=== PATIENT | female | born 1985 | race Caucasian/White ===

== ENCOUNTER → 2020-01-30 | Outpatient (CLI) | payer OTHER ==
[~2020-01-30] MED LIST: None at this Time
[2020-01-30 11:54] LABS: BILIRUBIN, DIRECT 0.3 mg/dL (0.1-0.2)
[2020-01-30 11:56] LABS: BILIRUBIN,TOTAL 1.1 mg/dL (0.2-1.0); TOTAL PROTEIN 7.4 g/dL (6.4-8.2)
[2020-01-30 13:31] LABS: BILIRUBIN,INDIRECT 0.8 mg/dL (0.0-2.0)
== END | disposition home or self-care (01) ==
LOC: STAR 10:35
PROVIDERS: ATTEND Specialist
DX: Z01.818 Encounter for other preprocedural examination (principal); Z11.59 Encounter for screening for other viral diseases; N92.0 Excessive and frequent menstruation with regular cycle; R19.07 Generalized intra-abdominal and pelvic swelling, mass and lump
CPT/HCPCS: 36415; 80076; 87635

== ENCOUNTER 2020-02-03 05:31 | Day surgery (SDC) | payer OTHER ==
[~2020-02-03] VITALS: Ht 170.2 cm; Wt 75.0 kg
[2020-02-03] MEDS ORDERED: LACTATED RINGERS 1,000 ML IV SCH (06:05)
[2020-02-03] MEDS ORDERED: CHLORHEXIDINE 15 ML UDC MM STA (06:06)
[2020-02-03 06:19] VITALS: BP 129/81
[2020-02-03 06:38] LABS: HCG UR SG 1.019 (1.003-1.030)
[2020-02-03] MEDS ORDERED: BUPIVACAINE/PF 0.25% ONE (07:03)
[2020-02-03] MEDS ORDERED: SCOPOLAMINE 1MG PATCH TD STA (07:19)
[2020-02-03] MEDS ORDERED: ACETAMINOPHEN 500 MG TABLET PO STA (07:19)
[2020-02-03] MEDS ORDERED: DEXAMETHASONE 4 MG/ML, 1ML ONE (07:28)
[2020-02-03] MEDS ORDERED: ROCURONIUM 10 MG/ML,10ML ONE (07:28)
[2020-02-03] MEDS ORDERED: SUGAMMADEX 200 MG/2 ML IVPush ONE (07:28)
[2020-02-03] MEDS ORDERED: SUCCINYLCHOLINE 20 MG/ML, 10ML ONE (07:28)
[2020-02-03] MEDS ORDERED: MIDAZOLAM 1 MG/ML, 5ML ONE (07:28)
[2020-02-03] MEDS ORDERED: PROPOFOL 10 MG/ML, 100ML IV ONE (07:28)
[2020-02-03] MEDS ORDERED: ONDANSETRON 2MG/ML, 2ML ONE (07:28)
[2020-02-03] MEDS ORDERED: HYDROmorphone 1 MG/ML, 1ML INJ IVPush PRN (07:30)
[2020-02-03] MEDS ORDERED: SCOPOLAMINE 1MG PATCH TD ONE (07:30)
[2020-02-03] MEDS ORDERED: OXYcodone 5 MG/5 ML ORAL.SOL UDC PO PRN (07:30)
[2020-02-03] MEDS ORDERED: KETOROLAC 30 MG/1 ML IVPush PRN (07:30)
[2020-02-03] MEDS ORDERED: MEPERIDINE/PF 25MG/0.5ML IVPush PRN (07:30)
[2020-02-03] MEDS ORDERED: PROMETHAZINE 25 MG/ML, 1ML IVPush PRN (07:30)
[2020-02-03] MEDS ORDERED: CLINDAMYCIN 150 MG/ML, 6ML ONE (07:44)
[2020-02-03] MEDS ORDERED: INDIGO CARMINE 0.8%, 5ML ONE (09:46)
[2020-02-03] MEDS ORDERED: FENTANYL PF 100 MCG/2ML ONE (10:04)
[2020-02-03] MEDS: FENTANYL PF 100 MCG/2ML IV PRN ×3 (10:30→10:59)
[2020-02-03] MEDS ORDERED: LORazepam 2 MG/ML, 1ML IVPush ONE (11:00)
== END 2020-02-03 14:00 | disposition home or self-care (01) ==
LOC: OUT 05:31
PROVIDERS: ATTEND Specialist
DX: D25.9 Leiomyoma of uterus, unspecified (principal); N99.71 Accidental puncture and laceration of a genitourinary system organ or structure during a genitourinary system procedure; N80.3 Endometriosis of pelvic peritoneum; N92.0 Excessive and frequent menstruation with regular cycle; N83.8 Other noninflammatory disorders of ovary, fallopian tube and broad ligament; F17.210 Nicotine dependence, cigarettes, uncomplicated; Z88.8 Allergy status to other drugs, medicaments and biological substances
CPT/HCPCS: 58573; 81025; 88305; 88307; J0330; J0690; J1100; J1170; J2060; J2250; J2405; J2704; J3010; J3490; J7120; S2900

== ENCOUNTER 2020-02-06 14:27 | Inpatient (IN) | payer OTHER ==
[~2020-02-06] VITALS: Ht 170.2 cm; Wt 78.0 kg
[2020-02-06] MEDS ORDERED: METOCLOPRAMIDE 5 MG/ML, 2ML ONE (14:56)
[2020-02-06] MEDS ORDERED: MORPHINE SULFATE 4 MG/ML, 1ML ONE (14:56)
[2020-02-06] MEDS ORDERED: MORPHINE SULFATE 4 MG/ML, 1ML IVPush PRN (15:00)
[2020-02-06 15:21] LABS: MEAN CORPUSCULAR HEMOGLOBIN 27.9 pg (27.0-34.8); MEAN CORPUSCULAR HGB CONC 31.5 g/dL (32.4-35.8); MEAN CORPUSCULAR VOLUME 88.6 fL (80-100); PLATELET COUNT 309 x10^3/uL (130-400); RED BLOOD COUNT 4.17 x10^6/uL (3.82-5.3); RED CELL DISTRIBUTION WIDTH 17.5 % (9.6-15.2)
[2020-02-06 15:27] LABS: ALBUMIN 3.2 g/dL (3.4-5.0); ANION GAP 11 mmol/L (5-15); CALCIUM 9.4 mg/dL (8.5-10.1); CHLORIDE 103 mmol/L (98-107)
--- NOTE | 2020-02-06 15:30 | NUR ---
PT MEDICATED PER MD ORDER FOR PAIN AND N/V. PT REPORTS HYSTERECTOMY ON 02/04/20 AND SINCE SURGERY PT HAS HAD N/V AND PAIN. PT REPORTS DIARRHEA TODAY AFTER HAVING NORMAL BM PRIOR TODAY. PT SENT BY SURGEON FOR CT SCAN AND TO R/O COMPICTIONS FROM SURGERY. IV STARTED AND LABS SENT TO THE LAB.
[2020-02-06 15:35] LABS: MICROSCOPIC INDICATED
[2020-02-06 15:49] LABS: BASOPHILS # (AUTO) 0.08 x10^3/uL (0-0.1); BASOPHILS % (AUTO) 1 % (0-1); EOSINOPHILS # (AUTO) 0.02 x10^3/uL (0-0.4); EOSINOPHILS % (AUTO) 0 % (1-7); LYMPHOCYTES # (AUTO) 0.79 x10^3/uL (1-3.4); LYMPHOCYTES % (AUTO) 6 % (22-44); MD SCAN; MONOCYTES # (AUTO) 0.77 x10^3/uL (0.2-0.8); MONOCYTES % (AUTO) 6 % (2-9); NEUTROPHILS # (AUTO) 11.91 x10^3/uL (1.8-6.8); NEUTROPHILS % (AUTO) 88 % (42-75)
[2020-02-06] MEDS ORDERED: METOCLOPRAMIDE 5 MG/ML, 2ML IVPush ONE (16:00)
[2020-02-06] MEDS ORDERED: SODIUM CHLORIDE 0.9% 1,000ML IVBOLUS ONE (16:00)
--- NOTE | 2020-02-06 16:00 | NUR ---
PT IN CT.
[2020-02-06] MEDS ORDERED: OMNIPAQUE 350 MG/ML, 100ML BOTTLE ONE (16:10)
[2020-02-06] MEDS ORDERED: SODIUM CHLORIDE 0.9% 1,000 ML IV SCH ×4 (16:30→23:00)
[2020-02-06] MEDS ORDERED: ONDA4TAB13 SL (16:34)
[2020-02-06] MEDS ORDERED: IBUP-1222 PO (16:34)
[2020-02-06] MEDS ORDERED: OXYC-302 PO (16:34)
[2020-02-06] MEDS ORDERED: NITROFURANTOIN PO (16:34)
[2020-02-06] MEDS ORDERED: MORPHINE SULFATE 4 MG/ML, 1ML IV PRN (18:30)
[2020-02-06] MEDS: ONDANSETRON 2MG/ML, 2ML IV PRN (18:52)
[2020-02-06] MEDS ORDERED: PROCHLORPERAZINE 5 MG/ML, 2ML IVPush PRN (19:00)
[2020-02-06 19:08] VITALS: BP 115/77
[2020-02-06] MEDS: KETOROLAC 30 MG/1 ML IVPush SCH (20:20)
[2020-02-06] MEDS: FAMOTIDINE 20 MG/2 ML IVPush SCH (20:20)
[2020-02-06] MEDS ORDERED: BENZOCAINE AEROSOL SPRAY 20%, 60ML TP ONE (20:30)
[2020-02-06] MEDS: D5%-0.45NACL+KCL 40MEQ 1,000 ML IV SCH (23:48)
[2020-02-07 00:58] VITALS: BP 107/70
[2020-02-07] MEDS: ONDANSETRON 2MG/ML, 2ML IV PRN ×2 (01:32→08:32)
[2020-02-07] MEDS: KETOROLAC 30 MG/1 ML IVPush SCH ×4 (01:32→20:49)
[2020-02-07 05:34] LABS: ALBUMIN 2.2 g/dL (3.4-5.0); ANION GAP 10 mmol/L (5-15); CALCIUM 7.8 mg/dL (8.5-10.1); CHLORIDE 112 mmol/L (98-107)
[2020-02-07 05:37] LABS: ALANINE AMINOTRANSFERASE 16 U/L (12-78); ALKALINE PHOSPHATASE 49 U/L (45-117); BILIRUBIN,TOTAL 1.3 mg/dL (0.2-1.0); CREATININE 0.37 mg/dL (0.55-1.02); TOTAL PROTEIN 5.8 g/dL (6.4-8.2)
[2020-02-07 05:46] LABS: BASOPHILS # (AUTO) 0.03 x10^3/uL (0-0.1); BASOPHILS % (AUTO) 0 % (0-1); EOSINOPHILS # (AUTO) 0.16 x10^3/uL (0-0.4); EOSINOPHILS % (AUTO) 2 % (1-7); LYMPHOCYTES # (AUTO) 0.96 x10^3/uL (1-3.4); LYMPHOCYTES % (AUTO) 11 % (22-44); MD NO; MEAN CORPUSCULAR HEMOGLOBIN 28.4 pg (27.0-34.8); MEAN CORPUSCULAR HGB CONC 32.4 g/dL (32.4-35.8); MEAN CORPUSCULAR VOLUME 87.7 fL (80-100); MEAN PLATELET VOLUME 8.3 fL (7.4-10.4); MONOCYTES # (AUTO) 0.75 x10^3/uL (0.2-0.8); MONOCYTES % (AUTO) 9 % (2-9); NEUTROPHILS # (AUTO) 6.52 x10^3/uL (1.8-6.8); NEUTROPHILS % (AUTO) 77 % (42-75); PLATELET COUNT 234 x10^3/uL (130-400); RED BLOOD COUNT 3.34 x10^6/uL (3.82-5.3)
[2020-02-07 08:00] VITALS: BP 122/86
[2020-02-07] MEDS: FAMOTIDINE 20 MG/2 ML IVPush SCH ×2 (08:32→20:49)
[2020-02-07] MEDS: D5%-0.45NACL+KCL 40MEQ 1,000 ML IV SCH (09:33)
[2020-02-07] MEDS ORDERED: POTASSIUM CHLORIDE 20 MEQ in SODIUM CHLORIDE 0.9% 250 ML IV SCH (10:30)
[2020-02-07] MEDS ORDERED: POTASSIUM CHLORIDE 30 MEQ in SODIUM CHLORIDE 0.9% 500 ML IV ONE (11:30)
[2020-02-07 12:54] VITALS: BP 132/85
[2020-02-07] MEDS: D5%-0.45NACL+KCL 20MEQ 1,000 ML IV SCH (16:13)
[2020-02-07] MEDS: SULFAMETH./TRIMETHOPRIM 10 ML in DEXTROSE 5% 250 ML IV SCH (18:07)
[2020-02-07 19:34] VITALS: BP 131/87
[2020-02-08 00:53] VITALS: BP 122/80
[2020-02-08] MEDS: SULFAMETH./TRIMETHOPRIM 10 ML in DEXTROSE 5% 250 ML IV SCH ×2 (02:13→10:12)
[2020-02-08] MEDS: KETOROLAC 30 MG/1 ML IVPush SCH ×2 (02:13→07:45)
[2020-02-08] MEDS: D5%-0.45NACL+KCL 20MEQ 1,000 ML IV SCH ×2 (03:05→11:15)
[2020-02-08 05:29] LABS: BASOPHILS % (AUTO) 2 % (0-1); EOSINOPHILS # (AUTO) 0.25 x10^3/uL (0-0.4); EOSINOPHILS % (AUTO) 4 % (1-7); LYMPHOCYTES # (AUTO) 1.11 x10^3/uL (1-3.4); LYMPHOCYTES % (AUTO) 18 % (22-44); MD NO; MEAN CORPUSCULAR HEMOGLOBIN 28.5 pg (27.0-34.8); MEAN CORPUSCULAR HGB CONC 32.3 g/dL (32.4-35.8); MEAN PLATELET VOLUME 8.4 fL (7.4-10.4); MONOCYTES # (AUTO) 0.57 x10^3/uL (0.2-0.8); MONOCYTES % (AUTO) 9 % (2-9); NEUTROPHILS # (AUTO) 4.24 x10^3/uL (1.8-6.8); NEUTROPHILS % (AUTO) 68 % (42-75); PLATELET COUNT 235 x10^3/uL (130-400); RED BLOOD COUNT 3.19 x10^6/uL (3.82-5.3); RED CELL DISTRIBUTION WIDTH 17.4 % (9.6-15.2)
[2020-02-08 05:35] LABS: ANION GAP 11 mmol/L (5-15); CALCIUM 8.1 mg/dL (8.5-10.1); CHLORIDE 109 mmol/L (98-107)
[2020-02-08 05:36] LABS: CREATININE 0.41 mg/dL (0.55-1.02)
[2020-02-08 07:28] VITALS: BP 118/82
[2020-02-08] MEDS: FAMOTIDINE 20 MG/2 ML IVPush SCH (07:44)
[2020-02-08] MEDS ORDERED: SULF1TAB24 PO (11:18)
== END 2020-02-08 12:14 | disposition home or self-care (01) | DRG 389 ==
LOC: ED 14:54 → EDIP 15:56 → 4NE 18:04 → DCLOUNGE 02-08 12:10
PROVIDERS: ADMIT Specialist; ATTEND Specialist
DX: K56.50 Intestinal adhesions [bands], unspecified as to partial versus complete obstruction (principal); N39.0 Urinary tract infection, site not specified; K56.7 Ileus, unspecified; D64.9 Anemia, unspecified; D72.829 Elevated white blood cell count, unspecified; E87.6 Hypokalemia; Z90.710 Acquired absence of both cervix and uterus
CPT/HCPCS: 36415; 74018; J3490; 74177; 80048; 80053; 81001; 82040; 83735; 85025; 87077; 87086; 87147; 87186; 87635; G0378; J1885; J2405; J3480; J7060; Q9967; J2270; J2765; J7030; J7040